=== PATIENT | male | born 1965 | race Caucasian/White ===

== ENCOUNTER → 2021-04-20 14:27 | Outpatient (BNVA) | payer BC, SELFPAY | PROVIDERS: Referring Provider Nurse Practitioner Family; Visit Provider Specialist | DX: G70.01 Myasthenia gravis with (acute) exacerbation (principal); E66.3 Overweight; Z86.16 Personal history of COVID-19 | CPT/HCPCS: 99205; 99417 ==

== ENCOUNTER 2021-04-20 16:16 | Inpatient (IN) | payer BC, SELFPAY ==
--- NOTE | 2021-04-20 16:40 | XRR_ITS ---
PROCEDURE INFORMATION: Exam: XR Chest Exam date and time: 04/20/2021 4:40 PM Age: 55 years old Clinical indication: Shortness of breath; Additional info: SOB TECHNIQUE: Imaging protocol: XR of the chest. Views: 1 view. COMPARISON: No relevant prior studies available. FINDINGS: Lungs: Unremarkable. No consolidation. Pleural spaces: Unremarkable. No pleural effusion. No pneumothorax. Heart/Mediastinum: Unremarkable. No cardiomegaly. Bones/joints: Unremarkable. XR/XR chest 1V portable [id number] IMPRESSION: No acute findings. Radiation Dose CTDIVOL = (mGy): DLP = (mGy-cm)
--- NOTE | 2021-04-20 16:46 | P.HP_ITS ---
Providers/Chief Complaint Admitting Physician: Lea Carlson MD Primary Care Provider: Jake Cano Chief Complaint: myastheia History of Present Illness David Toledo is a 55 year old male with past medical history of myasthenia gravis sent in from neurology office. Patient was diagnosed at age of 9 years. Has been following up with neurologist at [facility]. This time he started having symptoms few weeks ago with difficulty swallowing, droopy eyes, speech which has been getting worse. He saw his neurologist at [place] for which his dose of prednisone was increased to 60 mg. Because he continued to have difficulty swallowing even with liquids he presented to local neurology office and was asked to come to the hospital for further management. No lab work in the system. Review of Systems General: Reports: 10 or more systems reviewed and unremarkable except in HPI and below Const: Denies: fever(s), chills, body aches, change in appetite, change in weight, malaise, night sweats, diaphoresis, change in sleep pattern, daytime sleepiness or snoring Eyes: Denies: change in vision, blurry vision, photophobia, eye discomfort or eye discharge ENMT: Denies: throat pain, enlarged tonsils, hoarseness, mouth pain, oral sores, dry mouth, tinnitus, nasal congestion or post nasal drip Card: Denies: chest pain, palpitations, irregular heart rhythm, edema, swelling of feet/ankles, lightheadedness, syncope, pre-syncope, dyspnea on exertion, orthopnea, leg pain with exertion or acrocyanosis Resp: Denies: dyspnea, productive cough, non-productive cough, wheezing, stridor, pain on inspiration, change in phlegm color, hemoptysis or chest congestion GI: Denies: abdominal pain, nausea, vomiting, hematemesis, coffee ground emesis, dysphagia, heartburn, diarrhea, constipation, bloating, GI cramping, change in bowel habits, pain on defecation, hematochezia or melena : Denies: flank pain, difficulty urinating, dysuria, urinary frequency, urinary urgency, urinary hesitancy, urinary dribbling, difficulty starting urination, change in urine stream, nocturia or hematuria Musc: Denies: neck pain, back pain, extremity pain, joint pain, joint swelling, joint redness, joint stiffness or limited range of motion Neuro: Denies: headache(s), numbness in extremities, weakness in extremities, sensory changes, lack of coordination, difficulty walking, frequent falls, dizziness, vertigo, confusion, Slurred speech present, difficulty communicating thoughts or seizure-like activity Psych: Denies: anxiety, depression, mood swings, panic attacks, hopelessness or irritability Endo: Denies: polyuria, polydipsia, tired all the time, cold intolerance, excessive sweating, flushing or heat intolerance Baltazar/Lymph: Denies: easy bruising or easy bleeding All/Imm: Denies: tongue swelling, facial swelling or acute wheezing Medications/Allergies Home Medications Medication Instructions Recorded Confirmed Last Taken Type aspirin 81 mg tablet,delayed 81 mg PO DAILY 04/20/21 04/21/21 Unknown History release azathioprine 50 mg tablet 50 mg PO DAILY 04/20/21 04/21/21 Unknown History fiber 3 tab PO DAILY 04/20/21 04/21/21 Unknown History lisinopril 10 mg tablet 10 mg PO DAILY 04/20/21 04/21/21 Unknown History multivitamin 1 tab PO DAILY 04/20/21 04/21/21 Unknown History prednisone 10 mg tablet See Rx Instructions .ROUTE .COMPLEX 04/20/21 04/21/21 Unknown History pyridostigmine bromide 60 mg tablet 60 mg PO QID 04/20/21 04/21/21 Unknown History niacin 500 mg PO BID 04/21/21 04/21/21 Unknown History omega-3 fatty acids [Fish Oil] 500 mg PO BID 04/21/21 04/21/21 Unknown History potassium citrate 1 tab PO BID 04/21/21 04/21/21 Unknown History Allergies Allergy/AdvReac Type Severity Reaction Status Date / Time No Known Allergies Allergy Verified 04/21/21 09:47 PFSH Acute PFSH: Medical History Hypertension Myasthenia gravis Surgical History (Updated 04/21/21 @ 12:59 by Brice So MD) No significant past surgical history Family History Other Cerebral palsy Social History (Updated 04/21/21 @ 12:59 by Brice So MD) Smoking and tobacco status: never smoked Alcohol intake: never Substance/Drug Use: never Caregiver/support person: Yes Lives independently: Yes Housing: House Physical Exam Narrative: EXAM NARRATIVE: General: No acute distress, AO x3 HEENT: PERRLA, pupils bilaterally equal and reactive, mildly droopy eyes bilaterally Chest: Normal vesicular breath sounds, no added sounds, equal good air entry bilaterally CVS: S1-S2 regular, no murmurs, no tachycardia, no gallops, no rubs Abdomen: Soft, nontender, no organomegaly, bowel sounds present Neuro: No focal deficits, no facial deformity, AO x3, power 4/5 in all limbs Data : 04/20/21 17:14 04/20/21 17:14 A&P Assessment and plan (1) Myasthenia gravis in crisis: Case discussed with Dr. Carlson. Increase azathioprine to 100 mg daily. Continue with prednisone 60 mg daily. Start on IVIG 0.5 mg/kg body weight for next 4 days. Regular NIF assessment every 12 hourly. Clear liquid diet. PT/OT/speech evaluation. Oxygen supplementation keeping saturation over 90%. Status: Acute (2) Myasthenia gravis: Status: Acute (3) Hypertension: Goal blood pressure less than 140/90 mmHg. Status: Acute Additional A&P Information Check CBC, CMP, magnesium, phosphorus, INR, TSH, flu swab, urine Legionella, bacterial antigen, procalcitonin, iron panel, blood culture. Check HbA1c, lipid panel tomorrow morning. Continue other chronic medications including aspirin, lisinopril. We will change treatment plan as per the results. Full code. Clear liquid diet. Famotidine for PUD prophylaxis. Lovenox for DVT prophylaxis. Attestations Medical Necessity Statement*: Admission for more than 2 midnights for myasthenia crisis Time Spent in Patient Care: Greater than 35 minutes (>than 50% of time spent in counselling and/or direct pt care on unit) . Coding Level of Care Code Acute Commercial Leasing Agent for [employer]bil Delong Diagnoses Myasthenia gravis in crisis G70.01 Myasthenia gravis G70.00 Hypertension I10
[2021-04-20 17:08] VITALS: BMI 34.9
[2021-04-20 17:41] LABS: Basophils % 0.2 %; Hematocrit 51.9 % (42.0-52.0); Hemoglobin 17.4 g/dL (11.7-16.6); Lymphocytes # 0.6 10^3/uL (0.8-4.8); Lymphocytes % 6.4 %; Mean Corpuscular HGB Conc 33.5 g/dL (30.0-36.0); Mean Corpuscular Hemoglobin 29.4 pg (28.0-34.0); Mean Corpuscular Volume 87.8 fl (80-94); Mean Platelet Volume 9.2 fL (7.4-10.4); Monocytes # 0.3 10^3/uL (0.2-0.9); Monocytes % 2.7 %; Neutrophils # 8.45 10^3/uL (1.8-7.7); Neutrophils % 90.4 %; Nucleated Red Blood Cells % 0 %; Platelet Count 412 10^3/cmm (130-400); Red Blood Count 5.91 10^6/uL (4.1-5.3); Red Cell Distribution Width 13.1 % (12.1-15.1); White Blood Count 9.4 10^3/uL (4.0-10.0)
[2021-04-20 18:00] VITALS: PULSE 100; RESP 18; O2SAT 97
[2021-04-20 18:02] LABS: INR 0.98 (0.8-1.2)
[2021-04-20 18:08] LABS: NT Pro B Type Natriuretic Pept 56 pg/mL (0-125); Procalcitonin 0.08 ng/mL (0-0.5)
[2021-04-20 18:09] LABS: Magnesium 2.1 mg/dL (1.7-2.3); Phosphorus 3.7 mg/dL (2.5-4.5); Thyroid Stimulating Hormone 0.88 uIU/mL (0.27-4.20)
[2021-04-20 18:20] LABS: Alanine Aminotransferase 38 U/L (0-41); Albumin Level 4.6 g/dL (3.5-5.2); Alkaline Phosphatase 58 IU/L (40-130); Anion Gap 21.5 (5-19); Aspartate Amino Transferase 29 U/L (0-40); Blood Urea Nitrogen 9 mg/dL (6-20); Calcium 9.7 mg/dL (8.5-10.5); Carbon Dioxide 23 mmol/L (22-29); Chloride 99 mmol/L (98-107); Globulin 2.3 g/dL (1.3-4.6); Glomerular Filtration Rate 117.1 mL/min (90-130); Glucose 153 mg/dL (65-115); Iron 38 ug/dL (59-158); Osmolality Calculated 290 mOsm/kg (285-295); Percent Saturation 12.2 % (20-50); Potassium 4.5 mmol/L (3.5-5.1); Sodium 139 mmol/L (136-145); Total Bilirubin 0.7 mg/dL (0.15-1.2); Total Iron Binding Capacity 310 mcg/dl; Total Protein 6.9 g/dL (6.6-8.7); Unsaturated Iron Binding 272 ug/dL (112-347)
[2021-04-20] MEDS: ferrous gluconate 324 mg Tablet PO (18:51)
[2021-04-20] MEDS: enoxaparin 40 mg/0.4 mL Syringe SUBCUT (18:51)
[2021-04-20] MEDS: sodium chloride 0.9% 1,000 ML 50 ML IV (19:53)
[2021-04-20] MEDS: famotidine 20 mg/2 mL INJ IVP (19:53)
[2021-04-20 20:00] VITALS: BP 131/93; PULSE 99; RESP 17; TEMP 36.9; O2SAT 95
[2021-04-20 20:39] VITALS: PULSE 104; RESP 18; O2SAT 98
[2021-04-20] MEDS: ipratropium-albuterol 3 mL Neb INHALATION (20:46)
[2021-04-20 20:47] VITALS: PULSE 106; RESP 18; O2SAT 98
[2021-04-20 21:37] LABS: Add Urine Microscopic? YES; Bilirubin Urine Neg (Negative); Blood Urine 2+ (Negative); Glucose Urine UA Norm (Normal); Ketones Urine 2+ (Negative); Leukocyte Esterase Urine Negative (Negative); Nitrate Urine Negative (Negative); Protein Urine Neg (Negative); Specific Gravity, Urine 1.015 (1.005-1.030); Urine Appearance Clear (CLEAR); Urine Color Yellow (Yellow); Urobilinogen Urine Norm (Negative); pH Urine 6.5 (5-7)
[2021-04-20 21:38] LABS: Add Urine Culture? No; RBC Urine 0-4 /hpf (0-2)
[2021-04-20 22:22] LABS: Influenza A by IFA Negative (Negative)
[2021-04-20 22:23] LABS: Influenza B by IFA Negative (Negative)
[2021-04-21] VITALS (18 sets, daily range): BP systolic 126–148; BP diastolic 78–91; PULSE 59–98; RESP 16–21; TEMP 36.4–37; O2SAT 94–100
[2021-04-21 02:03] LABS: Estmated Average Glucose 157; Hemoglobin A1C 7.1 % (4.0-6.0)
[2021-04-21] MEDS: ipratropium-albuterol 3 mL Neb INHALATION ×4 (02:55→21:56)
[2021-04-21 07:29] LABS: Chol HDL Ratio 2.95 mg/dL (1.0-5.00); Cholesterol 192 mg/dL (0-200); HDL Cholesterol 65 mg/dL (60-100); LDL Cholesterol Calculated 95 mg/dL (50-129); Triglycerides 158 mg/dL (0-150); VLDL Cholestrol Calculation 32 mg/dL (0-30)
[2021-04-21] MEDS: famotidine 20 mg/2 mL INJ IVP ×2 (09:11→20:19)
[2021-04-21] MEDS: predniSONE 20 mg Tablet 60 MG PO (09:11)
[2021-04-21] MEDS: aspirin 81 mg EC Tablet PO (09:11)
[2021-04-21] MEDS: lisinopril 10 mg Tablet PO (09:11)
[2021-04-21] MEDS: metoprolol tartrate 25 mg Tablet PO ×2 (10:46→20:48)
--- NOTE | 2021-04-21 11:16 | PC.OT ---
OT EVALUATION EVALUATION COMPLETED. PATIENT DEMONSTRATES NO DEFICITS IN ADL/MRADL PERFORMANCE OR UE AROM/MX STRENGTH. NO FURTHER SKILLED OT REQUIRED AT THIS TIME.
--- NOTE | 2021-04-21 13:00 | P.PN_ITS ---
Subjective Subjective: Interval history: No acute events overnight. Received first dose of IVIG yesterday. Has remained hemodynamically stable and afebrile. Today morning states he is having difficulty in swallowing especially when he wakes up. Able to take his medication later in the day. NIF yesterday on admission - 20 and has remained stable to -20 today morning as well. Vitals/I&O/Wt Last Vital Signs Temp 98.6 F 04/21/21 11:41 Pulse 77 04/21/21 11:41 Resp 16 04/21/21 11:41 BP 137/88 04/21/21 11:41 Pulse Ox 95 04/21/21 11:41 04/20/21 04/21/21 04/21/21 22:59 06:59 14:59 Intake Total 400 / 400 Output Total 400 / 400 350 / 750 300 / 300 Balance -400 / -400 50 / -350 -300 / -300 Weight last 48 hrs Weight 108.635 kg Weight 107.501 kg Physical Exam Narrative: EXAM NARRATIVE: General: No acute distress, AO x3 HEENT: PERRLA, pupils bilaterally equal and reactive, mildly droopy eyes bilaterally Chest: Normal vesicular breath sounds, no added sounds, equal good air entry bilaterally CVS: S1-S2 regular, no murmurs, no tachycardia, no gallops, no rubs Abdomen: Soft, nontender, no organomegaly, bowel sounds present Neuro: No focal deficits, no facial deformity, AO x3, power 4/5 in all limbs Data : 04/20/21 17:14 04/20/21 17:14 Micro: Microbiology 04/20/21 20:00 Bacterial Antigens - Final Urine Kidney 04/20/21 20:00 Legionella Urinary Antigen - Final Urine,Voided 04/20/21 20:56 Blood Culture - Preliminary Blood SPECIMEN COLLECTED 04/20/21 21:00 Blood Culture - Preliminary Blood SPECIMEN COLLECTED A&P Assessment and plan (1) Myasthenia gravis in crisis: Case discussed with Dr. Carlson. Increase azathioprine to 100 mg daily. Continue with prednisone 60 mg daily. Start on IVIG 0.5 mg/kg body weight for 4 days. Respiratory NIF assessment every 12 hourly. Clear liquid diet. PT/OT/speech evaluation. Oxygen supplementation keeping saturation over 90%. Status: Acute (2) Myasthenia gravis: Status: Acute (3) Hypertension: Goal blood pressure less than 140/90 mmHg. Continue with home dose of lisinopril. Add metoprolol 25 mg twice daily. Status: Acute (4) Type 2 diabetes mellitus: New diagnosis. Status: Acute Additional A&P Information Type 2 diabetes mellitus: Most likely steroid-induced. A1c 7.1. Will require oral hypoglycemics on discharge. Full code. Clear liquid diet. Famotidine for PUD prophylaxis. Lovenox for DVT prophylaxis. Attestations Medical Necessity Statement*: Patient for management of myasthenia gravis crisis Time Spent in Patient Care: Greater than 35 minutes (>than 50% of time spent in counselling and/or direct pt care on unit) . Coding Level of Care Code Acute Maintenance Job Titles for Sybil Delong Diagnoses Myasthenia gravis in crisis G70.01 Myasthenia gravis G70.00 Hypertension I10 Type 2 diabetes mellitus E11.9
[2021-04-21] MEDS: ferrous gluconate 324 mg Tablet PO (18:17)
[2021-04-21] MEDS: enoxaparin 40 mg/0.4 mL Syringe SUBCUT (18:17)
[2021-04-21] MEDS: sodium chloride 0.9% 1,000 ML 50 ML IV (19:34)
[2021-04-22] VITALS (14 sets, daily range): BP systolic 125–152; BP diastolic 81–99; PULSE 55–88; RESP 16–20; TEMP 36.4–36.7; O2SAT 92–99
[2021-04-22] MEDS: ipratropium-albuterol 3 mL Neb INHALATION ×4 (03:28→21:48)
[2021-04-22 06:42] LABS: Basophils # 0.1 10^3/uL (0.0-0.1); Basophils % 0.7 %; Eosinophils # 0.1 10^3/uL (0.0-0.8); Eosinophils % 1.1 %; Hematocrit 44.3 % (42.0-52.0); Hemoglobin 14.6 g/dL (11.7-16.6); Lymphocytes # 1.5 10^3/uL (0.8-4.8); Mean Corpuscular Hemoglobin 30.2 pg (28.0-34.0); Mean Corpuscular Volume 91.7 fl (80-94); Mean Platelet Volume 9.2 fL (7.4-10.4); Monocytes # 0.6 10^3/uL (0.2-0.9); Monocytes % 8.4 %; Neutrophils # 5.27 10^3/uL (1.8-7.7); Neutrophils % 69.4 %; Nucleated Red Blood Cells % 0 %; Platelet Count 297 10^3/cmm (130-400); Red Blood Count 4.83 10^6/uL (4.1-5.3); Red Cell Distribution Width 13.7 % (12.1-15.1); White Blood Count 7.6 10^3/uL (4.0-10.0)
[2021-04-22 07:13] LABS: Alanine Aminotransferase 25 U/L (0-41); Albumin Level 3.4 g/dL (3.5-5.2); Alkaline Phosphatase 41 IU/L (40-130); Anion Gap 10.1 (5-19); Aspartate Amino Transferase 18 U/L (0-40); Blood Urea Nitrogen 10 mg/dL (6-20); Calcium 8.5 mg/dL (8.5-10.5); Carbon Dioxide 29 mmol/L (22-29); Chloride 106 mmol/L (98-107); Globulin 3.7 g/dL (1.3-4.6); Glomerular Filtration Rate 100.4 mL/min (90-130); Glucose 125 mg/dL (65-115); Osmolality Calculated 293 mOsm/kg (285-295); Potassium 4.1 mmol/L (3.5-5.1); Sodium 141 mmol/L (136-145); Total Bilirubin 0.5 mg/dL (0.15-1.2); Total Protein 7.1 g/dL (6.6-8.7)
[2021-04-22] MEDS: famotidine 20 mg/2 mL INJ IVP ×2 (07:59→16:53)
[2021-04-22] MEDS: metoprolol tartrate 25 mg Tablet PO ×2 (07:59→20:16)
[2021-04-22] MEDS: predniSONE 20 mg Tablet 60 MG PO (07:59)
[2021-04-22] MEDS: aspirin 81 mg EC Tablet PO (07:59)
[2021-04-22] MEDS: lisinopril 10 mg Tablet PO ×2 (07:59→11:31)
[2021-04-22] MEDS: ferrous gluconate 324 mg Tablet PO ×2 (07:59→16:59)
--- NOTE | 2021-04-22 12:43 | P.PN_ITS ---
Subjective Subjective: Interval history: No acute events overnight. Patient has remained hemodynamically stable and afebrile. Worked well with physical therapist and occupational therapist. States doing better with oral liquids food but still having issues trying to swallow pills and water. Continues to have NIF of -20. Vitals/I&O/Wt Last Vital Signs Temp 97.8 F 04/22/21 11:44 Pulse 69 04/22/21 11:44 Resp 16 04/22/21 11:44 BP 130/85 04/22/21 11:44 Pulse Ox 93 04/22/21 11:44 04/21/21 04/22/21 04/22/21 22:59 06:59 14:59 Intake Total 1000 / 1600 120 / 1720 240 / 240 Output Total 1900 / 2600 700 / 3300 Balance -900 / -1000 -580 / -1580 240 / 240 Weight last 48 hrs Weight 108.227 kg Weight 108.635 kg Weight 107.501 kg Physical Exam Narrative: EXAM NARRATIVE: General: No acute distress, AO x3 HEENT: PERRLA, pupils bilaterally equal and reactive, mildly droopy eyes bilaterally Chest: Normal vesicular breath sounds, no added sounds, equal good air entry bilaterally CVS: S1-S2 regular, no murmurs, no tachycardia, no gallops, no rubs Abdomen: Soft, nontender, no organomegaly, bowel sounds present Neuro: No focal deficits, no facial deformity, AO x3, power 4/5 in all limbs Data : 04/22/21 05:47 04/22/21 05:47 Micro: Microbiology 04/20/21 20:56 Blood Culture - Preliminary Blood NEGATIVE TO DATE 04/20/21 21:00 Blood Culture - Preliminary Blood NEGATIVE TO DATE 04/20/21 20:00 Bacterial Antigens - Final Urine Kidney 04/20/21 20:00 Legionella Urinary Antigen - Final Urine,Voided A&P Assessment and plan (1) Myasthenia gravis in crisis: Case discussed with Dr. Carlson. Continue with azathioprine 100 mg, prednisone 60 mg daily. Start on IVIG 0.5 mg/kg body weight for 4 days. Restart home dose of oral pyridostigmine. Respiratory NIF assessment every 12 hourly. Clear liquid diet. PT/OT/speech evaluation. Oxygen supplementation keeping saturation over 90%. If not improving or worsening we will plan to transfer to [facility] for further therapy. Status: Acute (2) Myasthenia gravis: Status: Acute (3) Hypertension: Goal blood pressure less than 140/90 mmHg. Increase lisinopril to 20 mg daily. Continue with metoprolol 25 mg twice daily. Status: Acute (4) Type 2 diabetes mellitus: New diagnosis. Status: Acute Additional A&P Information Type 2 diabetes mellitus: Most likely steroid-induced. A1c 7.1. Will require oral hypoglycemics on discharge. Full code. Clear liquid diet. Famotidine for PUD prophylaxis. Lovenox for DVT prophylaxis. Attestations Medical Necessity Statement*: Requires further hospitalization for management of myasthenia crisis while close monitoring is done for his swallow and breathing. Time Spent in Patient Care: Greater than 35 minutes (>than 50% of time spent in counselling and/or direct pt care on unit) . Coding Level of Care Code Acute Unbundler for [facility] Sindi Diagnoses Myasthenia gravis in crisis G70.01 Myasthenia gravis G70.00 Hypertension I10 Type 2 diabetes mellitus E11.9
[2021-04-22] MEDS: pyridostigmine 60 mg Tablet PO ×3 (14:03→20:16)
[2021-04-22] MEDS: sodium chloride 0.9% 1,000 ML 50 ML IV (14:03)
[2021-04-22] MEDS: enoxaparin 40 mg/0.4 mL Syringe SUBCUT (16:53)
[2021-04-23] VITALS (14 sets, daily range): BP systolic 99–135; BP diastolic 64–85; PULSE 60–86; RESP 14–19; TEMP 36.4–36.8; O2SAT 92–100
[2021-04-23] MEDS: ipratropium-albuterol 3 mL Neb INHALATION ×4 (02:45→20:24)
[2021-04-23] MEDS: aspirin 81 mg EC Tablet PO (08:11)
[2021-04-23] MEDS: ferrous gluconate 324 mg Tablet PO ×2 (08:11→17:12)
[2021-04-23] MEDS: metoprolol tartrate 25 mg Tablet PO ×2 (08:11→21:48)
[2021-04-23] MEDS: lisinopril 10 mg Tablet 20 MG PO (08:11)
[2021-04-23] MEDS: pyridostigmine 60 mg Tablet PO ×4 (08:11→21:48)
[2021-04-23] MEDS: predniSONE 20 mg Tablet 60 MG PO (08:11)
[2021-04-23] MEDS: famotidine 20 mg/2 mL INJ IVP ×2 (08:12→20:07)
--- NOTE | 2021-04-23 14:06 | P.PN_ITS ---
Subjective Subjective: Interval history: Events overnight. Has remained hemodynamically stable and afebrile. States doing better. Speech better.NIF -40 today. Eating better. Is able to swallow mechanical soft diet today. But is getting tired on repeated action or continues on exertion or eating for long. Vitals/I&O/Wt Last Vital Signs Temp 98.2 F 04/23/21 11:26 Pulse 61 04/23/21 11:26 Resp 18 04/23/21 11:26 BP 127/84 04/23/21 11:26 Pulse Ox 92 04/23/21 11:26 04/22/21 04/23/21 04/23/21 22:59 06:59 14:59 Intake Total 1080 / 1080 Output Total 800 / 1150 100 / 1250 250 / 250 Balance -800 / 374.167 -100 / 274.167 830 / 830 Weight last 48 hrs Weight 108.272 kg Weight 108.227 kg Physical Exam Narrative: EXAM NARRATIVE: General: No acute distress, AO x3 HEENT: PERRLA, pupils bilaterally equal and reactive, mildly droopy eyes bilaterally Chest: Normal vesicular breath sounds, no added sounds, equal good air entry bilaterally CVS: S1-S2 regular, no murmurs, no tachycardia, no gallops, no rubs Abdomen: Soft, nontender, no organomegaly, bowel sounds present Neuro: No focal deficits, no facial deformity, AO x3, power 4/5 in all limbs Data : 04/22/21 05:47 04/22/21 05:47 A&P Assessment and plan (1) Myasthenia gravis in crisis: Case discussed with Dr. Carlson. Continue with azathioprine 100 mg, prednisone 60 mg daily. Start on IVIG 0.5 mg/kg body weight for 4 days. Continue with home dose of oral pyridostigmine. Respiratory NIF assessment every 12 hourly. Clear liquid diet. PT/OT/speech evaluation. Oxygen supplementation keeping saturation over 90%. If not improving or worsening we will plan to transfer to [facility] for further therapy. Status: Acute (2) Myasthenia gravis: Status: Acute (3) Hypertension: Goal blood pressure less than 140/90 mmHg. Increase lisinopril to 20 mg daily. Continue with metoprolol 25 mg twice daily. Status: Acute (4) Type 2 diabetes mellitus: New diagnosis. Status: Acute Additional A&P Information Type 2 diabetes mellitus: Most likely steroid-induced. A1c 7.1. Will require oral hypoglycemics on discharge. Full code. Clear liquid diet. Famotidine for PUD prophylaxis. Lovenox for DVT prophylaxis. Discharge planning: If continues to do the same day can plan to discharge home tomorrow. Patient will need an early appointment with Dr. Carlson as an outpatient. Attestations Medical Necessity Statement*: For management of myasthenia crisis while IVIG treatment is continued. Time Spent in Patient Care: Greater than 35 minutes (>than 50% of time spent in counselling and/or direct pt care on unit) . Coding Level of Care Code Acute Electrical Software Engineer for [facility] Sindi Diagnoses Myasthenia gravis in crisis G70.01 Myasthenia gravis G70.00 Hypertension I10 Type 2 diabetes mellitus E11.9
[2021-04-23] MEDS: sodium chloride 0.9% 1,000 ML 50 ML IV (16:50)
[2021-04-23] MEDS: enoxaparin 40 mg/0.4 mL Syringe SUBCUT (17:12)
[2021-04-24] VITALS (9 sets, daily range): BP systolic 104–147; BP diastolic 66–92; PULSE 49–84; RESP 17–20; TEMP 36.4–36.8; O2SAT 95–99
[2021-04-24] MEDS: ipratropium-albuterol 3 mL Neb INHALATION ×2 (02:56→08:18)
[2021-04-24 05:47] LABS: Basophils # 0.1 10^3/uL (0.0-0.1); Basophils % 0.8 %; Eosinophils # 0.1 10^3/uL (0.0-0.8); Eosinophils % 1.6 %; Hematocrit 41.3 % (42.0-52.0); Hemoglobin 13.7 g/dL (11.7-16.6); Lymphocytes # 1.3 10^3/uL (0.8-4.8); Lymphocytes % 21.2 %; Mean Corpuscular HGB Conc 33.2 g/dL (30.0-36.0); Mean Corpuscular Hemoglobin 30.5 pg (28.0-34.0); Mean Platelet Volume 9.3 fL (7.4-10.4); Monocytes # 0.5 10^3/uL (0.2-0.9); Monocytes % 7.3 %; Neutrophils # 4.21 10^3/uL (1.8-7.7); Neutrophils % 68.8 %; Nucleated Red Blood Cells % 0 %; Platelet Count 259 10^3/cmm (130-400); Red Blood Count 4.49 10^6/uL (4.1-5.3); Red Cell Distribution Width 13.7 % (12.1-15.1); White Blood Count 6.1 10^3/uL (4.0-10.0)
[2021-04-24 06:15] LABS: Alanine Aminotransferase 23 U/L (0-41); Albumin Level 3.1 g/dL (3.5-5.2); Alkaline Phosphatase 40 IU/L (40-130); Anion Gap 11.6 (5-19); Aspartate Amino Transferase 19 U/L (0-40); Blood Urea Nitrogen 10 mg/dL (6-20); Calcium 7.6 mg/dL (8.5-10.5); Carbon Dioxide 26 mmol/L (22-29); Chloride 102 mmol/L (98-107); Globulin 4.6 g/dL (1.3-4.6); Glomerular Filtration Rate 117.1 mL/min (90-130); Glucose 110 mg/dL (65-115); Osmolality Calculated 282 mOsm/kg (285-295); Potassium 3.6 mmol/L (3.5-5.1); Sodium 136 mmol/L (136-145); Total Bilirubin 0.4 mg/dL (0.15-1.2); Total Protein 7.7 g/dL (6.6-8.7)
[2021-04-24] MEDS: famotidine 20 mg/2 mL INJ IVP (11:49)
[2021-04-24] MEDS: pyridostigmine 60 mg Tablet PO (11:50)
[2021-04-24] MEDS: ferrous gluconate 324 mg Tablet PO (11:50)
[2021-04-24] MEDS: predniSONE 20 mg Tablet 60 MG PO (11:50)
[2021-04-24] MEDS: metoprolol tartrate 25 mg Tablet PO (11:50)
[2021-04-24] MEDS: lisinopril 10 mg Tablet 20 MG PO (11:50)
[2021-04-24] MEDS: aspirin 81 mg EC Tablet PO (11:50)
--- NOTE | 2021-04-24 12:40 | PM.DCS ---
Discharge Providers Date of Admission: 04/20/21 16:16 Date of Discharge: April 24, 2021 Attending Provider at Admission: Lea Carlson MD Attending Provider at Discharge: Brice So MD Primary Care Provider: Jake Cano Diagnoses at Discharge Discharge Diagnosis (1) Myasthenia gravis in crisis: Status: Acute (2) Myasthenia gravis: Status: Acute (3) Hypertension: Status: Acute (4) Type 2 diabetes mellitus: Status: Acute Reason for Visit Reason for Visit: [facility] Hospital Course David Toledo is a 55 year old male with past medical history of myasthenia gravis sent in from neurology office. Patient was diagnosed at age of 9 years. Has been following up with neurologist at [facility]. This time he started having symptoms few weeks ago with difficulty swallowing, droopy eyes, speech which has been getting worse. He saw his neurologist at [place] for which his dose of prednisone was increased to 60 mg. Because he continued to have difficulty swallowing even with liquids he presented to local neurology office and was asked to come to the hospital for further management. Patient went to the hospital for further work-up and management of myasthenia crisis. He was started on IVIG treatment. On admission patient had difficulty in swallowing of liquids and had NIF of -20. Patient had slow progressive improvement and currently is able to swallow mechanical soft diet. His NIF has improved to -40. Patient has completed a course of IVIG treatment. His speech has improved quite significantly as well. During hospitalization he was found to have elevated blood pressures for which his antihypertensives were adjusted. Routine blood work also showed elevated HbA1c for which he has been started on Metformin. Patient is been discharged in hemodynamically stable condition advised to follow-up with Dr. Carlson from neurology early next week. Physical Exam Narrative: EXAM NARRATIVE: General: No acute distress, AO x3 HEENT: PERRLA, pupils bilaterally equal and reactive, mildly droopy eyes bilaterally Chest: Normal vesicular breath sounds, no added sounds, equal good air entry bilaterally CVS: S1-S2 regular, no murmurs, no tachycardia, no gallops, no rubs Abdomen: Soft, nontender, no organomegaly, bowel sounds present Neuro: No focal deficits, no facial deformity, AO x3, power 4/5 in all limbs Discharge Data Data Completed and Pending: Completed Studies During Hospitalization Category Date Time Status XR chest 1V tari ble [id number] Stat Exams 04/20/21 16:40 Completed Pending at discharge Category Date Time Status Blood Culture Sta t Lab 04/20/21 20:56 Results Labs from last 24 hours 04/24/21 04/24/21 04:57 04:57 WBC 6.1 RBC 4.49 Hgb 13.7 Hct 41.3 L MCV 92.0 MCH 30.5 MCHC 33.2 RDW 13.7 Plt Count 259 MPV 9.3 Neut % (Auto) 68.8 Lymph % (Auto) 21.2 [place] % (Auto) 7.3 Eos % (Auto) 1.6 Baso % (Auto) 0.8 Neut # (Auto) 4.21 Lymph # (Auto) 1.3 [place] # (Auto) 0.5 Eos # (Auto) 0.1 Baso # (Auto) 0.1 Nucleated RBC % (a uto) 0 Nucleated RBCs # 0.0 Sodium 136 Potassium 3.6 Chloride 102 Carbon Dioxide 26 Anion Gap 11.6 BUN 10 Creatinine 0.7 GFR Calculation 117.1 Glucose 110 Calculated Osmolal ity 282 L Calcium 7.6 L Total Bilirubin 0.4 AST 19 ALT 23 Alkaline Phosphata se 40 Total Protein 7.7 Albumin 3.1 L Globulin 4.6 Addt'l Data from Hospital Stay: Laboratory Results WBC 6.1 10^3/uL (4.0- 10.0) 04/24/21 04:57 RBC 4.49 10^6/uL (4.1 -5.3) 04/24/21 04:57 Hgb 13.7 g/dL (11.7-1 6.6) 04/24/21 04:57 Hct 41.3 % (42.0-52.0 ) L 04/24/21 04:57 MCV 92.0 fl (80-94) 04/24/21 04:57 MCH 30.5 pg (28.0-34. 0) 04/24/21 04:57 MCHC 33.2 g/dL (30.0-3 6.0) 04/24/21 04:57 RDW 13.7 % (12.1-15.1 ) 04/24/21 04:57 Plt Count 259 10^3/cmm (130 -400) 04/24/21 04:57 MPV 9.3 fL (7.4-10.4) 04/24/21 04:57 Neut % (Auto) 68.8 % 04/24/21 04:57 Lymph % (Auto) 21.2 % 04/24/21 04:57 [place] % (Auto) 7.3 % 04/24/21 04:57 Eos % (Auto) 1.6 % 04/24/21 04:57 Baso % (Auto) 0.8 % 04/24/21 04:57 Neut # (Auto) 4.21 10^3/uL (1.8 -7.7) 04/24/21 04:57 Lymph # (Auto) 1.3 10^3/uL (0.8- 4.8) 04/24/21 04:57 [place] # (Auto) 0.5 10^3/uL (0.2- 0.9) 04/24/21 04:57 Eos # (Auto) 0.1 10^3/uL (0.0- 0.8) 04/24/21 04:57 Baso # (Auto) 0.1 10^3/uL (0.0- 0.1) 04/24/21 04:57 Nucleated RBC % (a uto) 0 % 04/24/21 04:57 Nucleated RBCs # 0.0 /100WBC 04/24/21 04:57 PT 13.30 SECONDS (12 .1-14.9) 04/20/21 17:14 INR 0.98 (0.8-1.2) 04/20/21 17:14 Sodium 136 mmol/L (136-1 45) 04/24/21 04:57 Potassium 3.6 mmol/L (3.5-5 .1) 04/24/21 04:57 Chloride 102 mmol/L (98-10 7) 04/24/21 04:57 Carbon Dioxide 26 mmol/L (22-29) 04/24/21 04:57 Anion Gap 11.6 (5-19) 04/24/21 04:57 BUN 10 mg/dL (6-20) 04/24/21 04:57 Creatinine 0.7 mg/dL (0.7-1. 2) 04/24/21 04:57 GFR Calculation 117.1 mL/min (90- 130) 04/24/21 04:57 Glucose 110 mg/dL (65-115 ) 04/24/21 04:57 Estimat Average Gl ucose 157 04/20/21 16:42 Hemoglobin A1c 7.1 % (4.0-6.0) H 04/20/21 16:42 Calculated Osmolal ity 282 mOsm/kg (285- 295) L 04/24/21 04:57 Calcium 7.6 mg/dL (8.5-10 .5) L 04/24/21 04:57 Phosphorus 3.7 mg/dL (2.5-4. 5) 04/20/21 17:14 Magnesium 2.1 mg/dL (1.7-2. 3) 04/20/21 17:14 Iron 38 ug/dL (59-158) L 04/20/21 17:14 TIBC 310 mcg/dl 04/20/21 17:14 % Saturation 12.2 % (20-50) L 04/20/21 17:14 Unsat Iron Binding 272 ug/dL (112-34 7) 04/20/21 17:14 Total Bilirubin 0.4 mg/dL (0.15-1 .2) 04/24/21 04:57 AST 19 U/L (0-40) 04/24/21 04:57 ALT 23 U/L (0-41) 04/24/21 04:57 Alkaline Phosphata se 40 IU/L (40-130) 04/24/21 04:57 NT-Pro-B Natriuret Pep 56 pg/mL (0-125) 04/20/21 17:14 Total Protein 7.7 g/dL (6.6-8.7 ) 04/24/21 04:57 Albumin 3.1 g/dL (3.5-5.2 ) L 04/24/21 04:57 Globulin 4.6 g/dL (1.3-4.6 ) 04/24/21 04:57 Triglycerides 158 mg/dL (0-150) H 04/20/21 17:14 Cholesterol 192 mg/dL (0-200) 04/20/21 17:14 LDL Cholesterol, C alc 95 mg/dL (50-129) 04/20/21 17:14 Total VLDL Cholest gigi 32 mg/dL (0-30) H 04/20/21 17:14 HDL Cholesterol 65 mg/dL (60-100) 04/20/21 17:14 Cholesterol/HDL Ra juany 2.95 mg/dL (1.0-5 .00) 04/20/21 17:14 Procalcitonin 0.08 ng/mL (0-0.5 ) 04/20/21 17:14 TSH 0.88 uIU/mL (0.27 -4.20) 04/20/21 17:14 Urine Color Yellow (Yellow) 04/20/21 20:00 Urine Appearance Clear (CLEAR) 04/20/21 20:00 Urine pH 6.5 (5-7) 04/20/21 20:00 Ur Specific Gravit y 1.015 (1.005-1.0 30) 04/20/21 20:00 Urine Protein Neg (Negative) 04/20/21 20:00 Urine Glucose (UA) Norm (Normal) 04/20/21 20:00 Urine Ketones 2+ (Negative) H 04/20/21 20:00 Urine Blood 2+ (Negative) H 04/20/21 20:00 Urine Nitrate Negative (Negati ve) 04/20/21 20:00 Urine Bilirubin Neg (Negative) 04/20/21 20:00 Urine Urobilinogen Norm mg/dL (Negat debi) 04/20/21 20:00 Ur Leukocyte Hailey ase Negative (Negati ve) 04/20/21 20:00 Urine RBC 0-4 /hpf (0-2) H 04/20/21 20:00 Urine WBC None /hpf (0-5) 04/20/21 20:00 Ur Squamous Epith Cells None /hpf (0-5) 04/20/21 20:00 Amorphous Sediment Not Reportable 04/20/21 20:00 Urine Bacteria None /hpf (NONE) 04/20/21 20:00 Influenza Type A A g Negative (Negati ve) 04/20/21 21:00 Influenza Type B A g Negative (Negati ve) 04/20/21 21:00 Impressions Chest X-Ray 04/20/21 16:40 IMPRESSION: No acute findings. Radiation Dose CTDIVOL = (mGy): DLP = (mGy-cm) Vitals: Last Vital Signs Temp 98.3 F 04/24/21 11:55 Pulse 77 04/24/21 11:55 Resp 18 04/24/21 11:55 BP 147/92 04/24/21 11:55 Pulse Ox 95 04/24/21 11:55 Discharge Plan Discharge Patient Disposition: Home Condition: Stable Prescriptions: New prednisone 20 mg Tablet 60 mg PO DAILY 10 Days Qty: 30 RF: 0 metoprolol tartrate 25 mg Tablet 25 mg PO BID@0900,2100 30 Days Qty: 60 RF: 0 ferrous gluconate 324 mg (37.5 mg iron) Tablet 324 mg PO BIDWM Qty: 60 RF: 0 Protonix 40 mg tablet,delayed release (DR/EC) 40 mg PO DAILY 10 Days Qty: 10 RF: 0 metformin 500 mg tablet 500 mg PO BID Qty: 60 RF: 0 Continued pyridostigmine bromide [Mestinon] 60 mg tablet 60 mg PO QID RF: 0 aspirin [Adult Low Dose Aspirin] 81 mg tablet,delayed release (DR/EC) 81 mg PO DAILY RF: 0 multivitamin Tablet 1 tab PO DAILY RF: 0 fiber Tablet 3 tab PO DAILY RF: 0 niacin 500 mg Capsule, Extended Release 500 mg PO BID RF: 0 Fish Oil 500 mg Capsule 500 mg PO BID RF: 0 potassium citrate 1 tab PO BID RF: 0 Changed lisinopril 10 mg tablet 20 mg PO DAILY Qty: 0 RF: 0 azathioprine [Imuran] 50 mg tablet 100 mg PO DAILY Qty: 0 RF: 0 Discontinued prednisone 10 mg tablet See Rx Instructions .ROUTE .COMPLEX RF: 0 Discharge Orders: Discharge Order (Routine); Ordered 04/24/21 Ordered By: Brice So Referrals: Lea Carlson MD [Physician] - 4-7 days Jake Cano [Primary Care Provider] - 1 week Discharge Diet: Cardiac and Diabetic Discharge Activity: Resume usual activity Patient Instructions: Opioid Safety Activity Restrictions/Additional Instructions: Please continue take prednisone 60 mg daily for next 10 days. Please follow-up with Dr. Carlson early next week. Your blood pressure medications have been increased. Lisinopril has been changed to 20 mg daily, metoprolol has been added which is supposed to be 25 mg twice daily. Blood work also showed to be mildly diabetic with elevated A1c. Please take Metformin 500 mg twice daily and rechecks HbA1c within 6 months. Discharge Attestations Time Spent in Discharge Care*: greater than 30 min Specific Discharge Activities: educating patient, discussing with pcp/other providers, discussing with superintendent factory/social workers/dc planners, documenting/other paperwork and evaluating patient/reviewing data Status at Discharge: Cognitive status at discharge: cognitively intact, Functional status at discharge: independent ambulation Overall status at discharge: patient is progressing back to baseline Quality Metrics Clinical Quality Measures During this hospital stay, did patient experience: None Coding Level of Care Code Acute Chg FW DC note Diagnoses Myasthenia gravis in crisis G70.01 Myasthenia gravis G70.00 Hypertension I10 Type 2 diabetes mellitus E11.9
--- NOTE | 2021-04-24 13:41 | PC.NURSE ---
PT HAS DONE WELL FOR ME TODAY. PT HAS BEEN UP AND IS AMBULATING WELL. NO COMPLAINTS OF PAIN. PT IS A/O X4. PTS SPEECH IS CLEAR AND APPROPRIATE. PT WILL DISCHARGE TODAY. DISCHARGE PAPERWORK GONE OVER WITH PT. ALL QUESTIONS ANSWERED. IV REMOVED. PT TOLERATED WELL. CATHETER TIP INTACT. WE ARE JUST WAITING ON THE PTS RIDE TO GET HERE. WILL CONTINUE TO MONITOR PT.
--- NOTE | 2021-04-24 13:57 | PC.NURSE ---
PT'S FRIEND IS HERE TO GET HIM. PT SAFELY WHEELED OUT BY THE AID.
== END 2021-04-24 13:59 | disposition home or self-care (01) | DRG 57 ==
PROVIDERS: Admitting Provider Specialist; PCP Family Medicine; Visit Provider Student in an Organized Health Care Education/Training Program
DX: G70.01 Myasthenia gravis with (acute) exacerbation (principal); I10 Essential (primary) hypertension; E11.9 Type 2 diabetes mellitus without complications; Z79.52 Long term (current) use of systemic steroids; Z79.82 Long term (current) use of aspirin
CPT/HCPCS: 36415; 71045; 80053; 80061; 81001; 83036; 83540; 83550; 83735; 83880; 84100; 84145; 84443; 85025; 85610; 86403; 87040; 87449; 87804; 92507; 92523; 92526; 92610; 94640; 96372; 97161; J1568; J1650; J3490; J7030; J7500; J7512

== ENCOUNTER → 2021-04-27 10:57 | Outpatient (BNVA) | payer BC, SELFPAY | PROVIDERS: PCP Family Medicine; Visit Provider Specialist | DX: G70.01 Myasthenia gravis with (acute) exacerbation (principal); E09.44 Drug or chemical induced diabetes mellitus with neurological complications with diabetic amyotrophy; T38.0X5D Adverse effect of glucocorticoids and synthetic analogues, subsequent encounter; Z79.84 Long term (current) use of oral hypoglycemic drugs; I10 Essential (primary) hypertension | CPT/HCPCS: 99215 ==